=== PATIENT | female | born 1985 | race Caucasian/White ===

== ENCOUNTER 2018-11-11 05:58 | Emergency (ER) | payer BC ==
[~2018-11-11] VITALS: Ht 160 cm; Wt 79.4 kg
[2018-11-11 06:04] VITALS: BP_SYST 96
[2018-11-11 07:06] LABS: BILIRUBIN,URINE NEGATIVE (NEGATIVE); BLOOD, URINE NEGATIVE (NEGATIVE); CLARITY/URINE CLEAR (CLEAR); COLOR,URINE YELLOW (YELLOW); GLUCOSE,URINE NEGATIVE (NEGATIVE); KETONES,URINE NEGATIVE (NEGATIVE); LEUKOCYTE ESTERASE ,URINE NEGATIVE (NEGATIVE); NITRITE, URINE NEGATIVE (NEGATIVE); PROTEIN URINE NEGATIVE (NEGATIVE); UROBILINOGEN,URINE 0.2 (0.2-1.0)
[2018-11-11] MEDS ORDERED: NACL 0.9% 1,000 ML IV ONE (07:11)
[2018-11-11 07:16] LABS: BASOPHILS % (AUTO) 0.4 % (0.0-2.0); EOSINOPHILS # (AUTO) 0.1 K/uL (0.0-0.4); EOSINOPHILS % (AUTO) 1.5 % (0.0-4.0); HEMATOCRIT 32.7 % (36-48); HEMOGLOBIN 11.2 g/dL (12.0-16.0); LYMPHOCYTES # (AUTO) 2.1 K/uL (1.0-5.5); LYMPHOCYTES % (AUTO) 22.1 % (20.5-51.5); MEAN CORPUSCULAR HEMOGLOBIN 32 pg (27-31); MEAN CORPUSCULAR HGB CONC 34 % (32-36); MEAN CORPUSCULAR VOLUME 95 fL (79.0-98.0); MONOCYTES # (AUTO) 0.5 K/uL (0.0-1.0); MONOCYTES % (AUTO) 5.2 % (1.7-9.3); NEUTROPHILS # (AUTO) 6.6 K/uL (1.8-7.7); NEUTROPHILS % (AUTO) 70.8 % (40.0-70.0); PLATELET COUNT (AUTO) 263 K/uL (130-430); RED BLOOD CELL COUNT(AUTO) 3.45 MIL/uL (4.2-6.2); RED CELL DISTRIBUTION WIDTH 13.1 % (9.0-15.0); WHITE BLOOD COUNT (AUTO) 9.3 K/uL (4.8-10.8)
[2018-11-11 07:26] LABS: CALCIUM 8.4 mg/dL (8.4-11.0); CREATININE 0.58 mg/dL (0.55-1.30); POTASSIUM 3.6 mmol/L (3.5-5.1)
[2018-11-11 07:56] LABS: ALBUMIN 2.8 g/dL (3.4-4.8); TOTAL BILIRUBIN 0.3 mg/dL (0.0-1.0)
[2018-11-11 08:45] VITALS: BP_SYST 110
== END 2018-11-11 08:45 | disposition home or self-care (01) ==
LOC: SED 05:58
DX: O26.892 Other specified pregnancy related conditions, second trimester (principal); R10.9 Unspecified abdominal pain; Z3A.16 16 weeks gestation of pregnancy; Z88.0 Allergy status to penicillin
CPT/HCPCS: 36415; 76770; 76815; 80053; 81003; 84702; 85025; 99284; J7030

== ENCOUNTER 2019-03-25 20:57 | Observation (INO) | payer BC ==
[~2019-03-25] VITALS: Ht 162.6 cm; Wt 81.6 kg
== END 2019-03-25 21:26 | disposition home or self-care (01) ==
LOC: SPU 20:57
PROVIDERS: ADMIT Obstetrics & Gynecology; ATTEND Obstetrics & Gynecology
DX: O26.893 Other specified pregnancy related conditions, third trimester (principal); R10.9 Unspecified abdominal pain; Z3A.36 36 weeks gestation of pregnancy
CPT/HCPCS: G0378

== ENCOUNTER 2019-04-24 00:02 | Inpatient (IN) | payer BC ==
[~2019-04-24] VITALS: Ht 162.6 cm; Wt 93.0 kg
[2019-04-24] MEDS ORDERED: LR 1,000 ML IV ONE (00:11)
[2019-04-24] MEDS ORDERED: LR 1,000 ML IV SCH (00:11)
[2019-04-24] MEDS ORDERED: OXYTOCIN/0.9 % SODIUM CHLORIDE 1,000 ML IV SCH ×2 (00:11→03:05)
[2019-04-24] MEDS ORDERED: TERBUTALINE SULFATE 1 MG/ML VIAL SUBCUT ONE (00:15)
[2019-04-24] MEDS ORDERED: NALBUPHINE HCL 10 MG/ML AMP IVP PRN (00:15)
[2019-04-24 00:30] LABS: HEMATOCRIT 34.4 % (36-48); HEMOGLOBIN 11.4 g/dL (12.0-16.0); MEAN CORPUSCULAR HEMOGLOBIN 31 pg (27-31); MEAN CORPUSCULAR HGB CONC 33 % (32-36); MEAN CORPUSCULAR VOLUME 94 fL (79.0-98.0); PLATELET COUNT (AUTO) 307 K/uL (130-430); RED BLOOD CELL COUNT(AUTO) 3.65 MIL/uL (4.2-6.2); RED CELL DISTRIBUTION WIDTH 14.1 % (9.0-15.0); WHITE BLOOD COUNT (AUTO) 15.4 K/uL (4.8-10.8)
[2019-04-24 01:02] LABS: ATYPICAL LYMPHOCYTES % 0 % (0-0); BAND % (MANUAL) 3 % (0-6); BASOPHILS % (MANUAL) 0 % (0-2); EOSINOPHILS % (MANUAL) 1 % (0-7); LYMPHOCYTES % (MANUAL) 12 % (20-46); METAMYELOCYTES % 1 % (0-0); MONOCYTES % (MANUAL) 8 % (0-11); MYELOCYTES % 0 % (0-0)
[2019-04-24] MEDS ORDERED: fentaNYL CITRATE/PF 100 MCG/2 ML AMP ONE (01:04)
[2019-04-24] MEDS ORDERED: ROPIVACAINE HCL/PF 0.2% 100 ML ONE (01:05)
[2019-04-24 01:19] VITALS: BP_SYST 99
[2019-04-24] MEDS ORDERED: LR 500 ML IV ONE (01:23)
[2019-04-24] MEDS ORDERED: FENT2mCg/mL-ROPIVA0.2%/NS EPID 100 ML EP SCH (01:30)
[2019-04-24] MEDS ORDERED: OXYTOCIN/0.9 % SODIUM CHLORIDE 1,000 ML IV ONE (03:05)
[2019-04-24] MEDS ORDERED: WITCH HAZEL LEAF 1 MED.PAD MED.PAD TP PRN (03:15)
[2019-04-24] MEDS ORDERED: DERMOPLAST SPRAY TP PRN (03:15)
[2019-04-24] MEDS ORDERED: RHO(D) IMMUNE GLOBULIN/MALTOSE 1500 UNITS/1.3 ML (WINHRO) IM PRN (03:15)
[2019-04-24] MEDS ORDERED: SENNOSIDES/DOCUSATE SODIUM 1 TAB TABLET(SENOKOT-S) PO PRN (03:15)
[2019-04-24] MEDS ORDERED: DIPH-TET-PERTUS Vaccine 0.5 ML VIAL (ADACEL) I.M. PRN (03:15)
[2019-04-24] MEDS ORDERED: HYDROcodone/ACETAMIN 5-325 MG TAB (NORCO/ VICODIN) PO PRN (03:15)
[2019-04-24] MEDS ORDERED: HYDROCORTISONE 0.5%, 28.35 GM TOPICAL CREAM TP PRN (03:15)
[2019-04-24] MEDS ORDERED: ANUSOL 1 EA SUPP.RECT (PREPARATION H) RC PRN (03:15)
[2019-04-24] MEDS ORDERED: DOCUSATE SODIUM 100 MG CAPSULE PO PRN (03:15)
[2019-04-24] MEDS ORDERED: MEASLES,MUMPS&RUBELLA VACC/PF 12500 UNIT/0.5 ML VIAL SUBQ PRN (03:15)
[2019-04-24] MEDS ORDERED: METHYLERGONOVINE MALEATE 0.2 MG TABLET PO PRN (03:15)
[2019-04-24] MEDS ORDERED: OXYCODONE/ACETAMINOPHEN 5-325 TABLET PO PRN (03:15)
[2019-04-24] MEDS ORDERED: LANOLIN 7 GM OINT. TP PRN (03:15)
[2019-04-24] MEDS: IBUPROFEN 600 MG TABLET PO SCH ×2 (12:00→23:55)
[2019-04-24] MEDS: OXYCODONE/ACETAMINOPHEN 5-325 TABLET PO PRN ×2 (20:54→23:59)
[2019-04-24] MEDS ORDERED: TEMAZEPAM 15 MG CAPSULE PO PRN (21:00)
[2019-04-25 05:29] LABS: BASOPHILS # (AUTO) 0.1 K/uL (0.0-0.2); BASOPHILS % (AUTO) 0.4 % (0.0-2.0); EOSINOPHILS # (AUTO) 0.2 K/uL (0.0-0.4); EOSINOPHILS % (AUTO) 1.6 % (0.0-4.0); HEMATOCRIT 31.8 % (36-48); HEMOGLOBIN 10.5 g/dL (12.0-16.0); LYMPHOCYTES # (AUTO) 2.7 K/uL (1.0-5.5); LYMPHOCYTES % (AUTO) 21.2 % (20.5-51.5); MEAN CORPUSCULAR HEMOGLOBIN 31 pg (27-31); MEAN CORPUSCULAR HGB CONC 33 % (32-36); MEAN CORPUSCULAR VOLUME 94 fL (79.0-98.0); MONOCYTES # (AUTO) 0.8 K/uL (0.0-1.0); MONOCYTES % (AUTO) 6.2 % (1.7-9.3); NEUTROPHILS # (AUTO) 9.2 K/uL (1.8-7.7); NEUTROPHILS % (AUTO) 70.6 % (40.0-70.0); PLATELET COUNT (AUTO) 265 K/uL (130-430); RED BLOOD CELL COUNT(AUTO) 3.37 MIL/uL (4.2-6.2); RED CELL DISTRIBUTION WIDTH 14.7 % (9.0-15.0)
[2019-04-25] MEDS: IBUPROFEN 600 MG TABLET PO SCH (06:00)
[2019-04-25] MEDS: OXYCODONE/ACETAMINOPHEN 5-325 TABLET PO PRN (06:22)
== END 2019-04-25 12:05 | disposition home or self-care (01) | DRG 807 ==
LOC: SPU 00:02
PROVIDERS: ADMIT Specialist; ATTEND Specialist
PROC: 10E0XZZ Delivery of Products of Conception, External Approach (ICD-10-PCS; principal; 2019-04-24)
PROC: 3E0R3BZ Introduction of Anesthetic Agent into Spinal Canal, Percutaneous Approach (ICD-10-PCS; 2019-04-24)
PROC: 00HU33Z Insertion of Infusion Device into Spinal Canal, Percutaneous Approach (ICD-10-PCS; 2019-04-24)
DX: O80 Encounter for full-term uncomplicated delivery (principal); Z37.0 Single live birth; Z3A.39 39 weeks gestation of pregnancy
CPT/HCPCS: 36415; 81002-TC; 85007; 85025; 85027; 86592; 86886; 86900; 86901; 94760; J2300; J2590; J2795; J3010; J7120

== ENCOUNTER 2019-05-05 18:44 | Emergency (ER) | payer BC ==
[~2019-05-05] VITALS: Ht 162.6 cm; Wt 89.4 kg
[2019-05-05 19:01] VITALS: BP_SYST 137
--- NOTE | 2019-05-05 19:05 | NUR ---
Patient to ER bed 04 to gown for evaluation. Side rails up.
--- NOTE | 2019-05-05 19:10 | NUR ---
PT came to the ED by to the ED for a complaint of a sudden onset of rectal bleeding and pain. Reports pain is 5/10. Reports there was a clot when wiping from the rectum. Last BM was today and diarrhea. Reprots having a healthy baby 11 days ago and everything was normal until todayh. Denies n/v/d or fever. No other complaints/injuries noted. Will cont. to monitor,.
--- NOTE | 2019-05-05 19:30 | NUR ---
ER at bedside examining patient.
--- NOTE | 2019-05-05 20:00 | NUR ---
performing rectal exam at bedside with myself as [employer] warrant officer.
[2019-05-05 20:15] VITALS: BP_SYST 137
--- NOTE | 2019-05-05 20:15 | NUR ---
Note undone in EDM - 05/05/19 at 2031 by [email or web address] Patient given written and verbal discharge instructions and verbalizes understanding. ER MD Dr. Cochran discussed with patient the results and treatment provided. Patient in stable condition. ID arm band removed. Patient educated on pain management and to follow up with PMD. Pain Scale 0/10. Opportunity for questions provided and answered. Medication side effect fact sheet provided.
== END 2019-05-05 20:15 | disposition home or self-care (01) ==
LOC: SED 18:44
DX: K64.9 Unspecified hemorrhoids (principal); Z88.0 Allergy status to penicillin
CPT/HCPCS: 99281

== ENCOUNTER 2019-09-10 06:19 | Day surgery (SDC) | payer BC ==
[~2019-09-10] VITALS: Ht 162.6 cm; Wt 77.1 kg
[2019-09-10] MEDS ORDERED: ROCURONIUM BROMIDE 10 MG/ML (ZEMURON) IV ONE (08:55)
[2019-09-10] MEDS ORDERED: SEVOFLURANE 15 MIN GAS INH ONE (08:55)
[2019-09-10] MEDS ORDERED: GLYCOPYRROLATE 0.2 MG/ML VIAL IJ ONE (08:55)
[2019-09-10] MEDS ORDERED: ONDANSETRON HCL 4 MG/2 ML VIAL IVP ONE (08:55)
[2019-09-10] MEDS ORDERED: KETOROLAC TROMETHAMINE 30 MG VIAL IVP ONE (08:55)
[2019-09-10] MEDS ORDERED: PHENYLEPHRINE HCL 10 MG/ML VIAL (NEOSYNEPHRINE) IV ONE (08:55)
[2019-09-10] MEDS ORDERED: MIDAZOLAM HCL 5 MG/5 ML VIAL IVP ONE (08:55)
[2019-09-10] MEDS ORDERED: NS IRRIG SOLN 1000 ML IR ONE (08:55)
[2019-09-10] MEDS ORDERED: PROPOFOL 200MG/ 20ML VIAL (DIPRIVAN) IV ONE (08:55)
[2019-09-10] MEDS ORDERED: fentaNYL CITRATE/PF 100 MCG/2 ML AMP IVP ONE (08:55)
[2019-09-10] MEDS ORDERED: LR 1,000 ML IV SCH (09:26)
[2019-09-10] MEDS ORDERED: MORPHINE 4 MG/ML INJ. SYRINGE IVP PRN ×3 (09:30)
[2019-09-10] MEDS ORDERED: METOCLOPRAMIDE HCL 10 MG/2 ML VIAL IVP PRN (09:30)
[2019-09-10 12:03] VITALS: BP_SYST 106
[2019-09-10] MEDS ORDERED: ONDANSETRON HCL 4 MG/2 ML VIAL IVP PRN (12:30)
[2019-09-10] MEDS ORDERED: HYDROcodone/ACETAMIN 5-325 MG TAB (NORCO/ VICODIN) PO PRN (12:30)
[2019-09-10] MEDS ORDERED: OXYCODONE/ACETAMINOPHEN 5-325 TABLET PO PRN (12:30)
== END 2019-09-10 12:55 | disposition home or self-care (01) ==
LOC: SDS 06:19 → SMU 06:20 → SDS 12:55
PROVIDERS: ATTEND Specialist
DX: Z30.2 Encounter for sterilization (principal); N73.6 Female pelvic peritoneal adhesions (postinfective); Z88.0 Allergy status to penicillin
CPT/HCPCS: 58670; J1885; J2250; J2370; J2405; J2704; J3010; J3490; J7120; C1727

== ENCOUNTER 2019-11-24 18:46 | Emergency (ER) | payer BC ==
[~2019-11-24] VITALS: Ht 160 cm; Wt 72.1 kg
[2019-11-24 19:19] VITALS: BP_SYST 127
[2019-11-24 21:18] VITALS: BP_SYST 117
== END 2019-11-24 21:17 | disposition home or self-care (01) ==
LOC: SED 18:46
DX: L24.9 Irritant contact dermatitis, unspecified cause (principal); Z48.89 Encounter for other specified surgical aftercare; Z88.0 Allergy status to penicillin
CPT/HCPCS: 99283